=== PATIENT | male | born 1960 | race Caucasian/White ===

== ENCOUNTER 2018-06-14 09:36 | Emergency (ER) | payer MEDICAID, OTHER ==
[2018-06-14] MEDS ORDERED: Colchicine* 0.6 MG TAB PO ONE (09:53)
--- NOTE | 2018-06-14 10:08 | RAD ---
INDICATION: Left foot injury. TECHNIQUE: 3 views of the left foot were obtained. FINDINGS: The bones are in normal alignment. No fracture is seen. Joint spaces appear maintained. There are prominent vascular calcifications present. IMPRESSION: NO EVIDENCE FOR FRACTURE.
[2018-06-14] MEDS ORDERED: traMADol TAB* 50 MG PO ONE (10:29)
[2018-06-14] MEDS ORDERED: predniSONE TAB* 20 MG PO ONE (10:29)
[2018-06-14 10:47] LABS: ABS Basophils 0.1 10^3/ul (0-0.2); ABS Eosinophils 0.2 10^3/ul (0-0.6); ABS Lymphocytes 2.4 10^3/ul (1.0-4.8); ABS Monocytes 0.8 10^3/ul (0-0.8); ABS Neutrophils 6.8 10^3/ul (1.5-7.7); ABS Nucleated RBC 0 10^3/ul; Eosinophil % 1.8 % (0-6); Hematocrit 39 % (42-52); Lymphocyte % 23.6 % (25-47); Mean Corpuscular HGB Conc 33 g/dl (31-36); Mean Corpuscular Hemoglobin 29 pg (27-31); Mean Corpuscular Volume 87 fL (80-94); Mean Platelet Volume 8.6 um3 (7.4-10.4); Nucleated Red Blood Cells % 0.1; Platelet Count 324 10^3/ul (150-450); Red Cell Distribution Width 15 % (10.5-15); White Blood Count 10.3 10^3/ul (3.5-10.8)
[2018-06-14 11:12] LABS: EGFR Non-African American 45.4 (>60); Uric Acid 6.8 mg/dL (4.4-7.6)
[2018-06-14] MEDS ORDERED: Indomethacin CAP* 25 MG CAP PO ONE (11:55)
[2018-06-14 14:07] VITALS: BP 131/76
--- NOTE | 2018-06-14 16:26 | ED ---
Lower Extremity - HPI Summary HPI Summary: Patient is a 57-year-old male presenting to the ED with severe left foot pain. He states the pain gradually started proximally 2 days ago (36 hours) and gradually worsened. Denies any history of osteomyelitis, cellulitis or gout. He is a diabetic. He states he did not injure the foot or have any trauma to the area. He is noting some erythema to the base of the right great MCP as well as to go lateral side of the foot. The majority of the pain is to the toe and to the ball of the foot. He denies any excess alcohol use, however endorses eating a lot of protein over the weekend, however this is at his baseline. He denies any other symptoms at this time. Pain is currently a 10/10 , constant and throbbing and burning. Patient states this is worst of life. He has not taken any medications at home for relief. Blood sugars are well maintained with his medications. He is tearful on arrival. Vital signs are stable. - History of Current Complaint Chief Complaint: EDExtremityLower Stated Complaint: L FOOT PAIN Time Seen by Provider: 06/14/18 09:43 Hx Obtained From: Patient Mechanism Of Injury: Other - No known trauma Onset of Pain: Days Onset/Duration: Days Severity Initially: Severe Severity Currently: Severe Pain Intensity: 10 Pain Scale Used: 0-10 Numeric Timing: Constant Location: Is Discrete @ - Left foot, ball of foot, great toe and left lateral side Character Of Pain: Sharp, Aching, Burning Associated Signs And Symptoms: Positive: Swelling. Negative: Redness, Bruising , Fever, Weakness, Abdominal Pain, Knee Pain Aggravating Factor(s): Standing Alleviating Factor(s): Nothing Able to Bear Weight: No - Risk Factors Gout Risk Factors: Age Over 40, Male, Diabetes, Hypertension, Renal Disease DVT Risk Factors: Negative Septic Arthritis Risk Factor: Negative - Allergies/Home Medications Allergies/Adverse Reactions: Allergies Allergy/AdvReac Type Severity Reaction Status Date / Time Penicillins Allergy Swelling Verified 06/14/18 10:01 Home Medications: Home Medications Atorvastatin Calcium [Lipitor] 40 mg PO DAILY 06/14/18 [History Confirmed ] Lisinopril [Prinivil TAB 20 mg] 20 mg PO DAILY 06/14/18 [History Confirmed 06/14] Metformin HCl [Metformin HCl ER] 1,000 mg PO BID 06/14/18 [History Confirmed 11/27] glyBURIDE [Glyburide] 5 mg PO BID 06/14/18 [History Confirmed 06/14/18] PMH/Surg Hx/FS Hx/Imm Hx Previously Healthy: Yes Endocrine/Hematology History: Reports: Hx Diabetes - fs TID, oral meds, diet controlled Cardiovascular History: Denies: Hx Hypertension, Hx Pacemaker/ICD Respiratory History: Denies: Hx Asthma History: Reports: Hx Kidney Stones Musculoskeletal History: Reports: Hx Arthritis - in hands Sensory History: Reports: Hx Contacts or Glasses - glasses Denies: Hx Hearing Aid Opthamlomology History: Reports: Hx Contacts or Glasses - glasses Psychiatric History: Denies: Hx Panic Disorder - Surgical History Surgery Procedure, Year, and Place: SPLEEN, appendectomy, L4-5 disk has been removed, broken nose fixed; FACIAL SURGERY FOR MULTIPLE FRACTURES 06/2013 ( [facility]); FX LT CLAVICLE; PELVIS ORIF; LT KNEE DE GLOVING Hx Anesthesia Reactions: No - Immunization History Hx Pertussis Vaccination: No Immunizations Up to Date: Yes Infectious Disease History: No Infectious Disease History: Denies: Traveled Outside the [place] in Last 30 Days - Social History Occupation: Employed Full-time Lives: With Family Alcohol Use: None Hx Substance Use: No Substance Use Type: Reports: None Hx Tobacco Use: No Smoking Status (MU): Never Smoked Tobacco Review of Systems Constitutional: Negative Negative: Fever, Chills, Skin Diaphoresis Negative: Palpitations, Chest Pain Negative: Shortness Of Breath, Cough Genitourinary: Negative Positive: no symptoms reported, see HPI Positive: Arthralgia, Myalgia Positive: Other - erythema without warmth to the great toe and lateral side of the left foot Neurological: Negative All Other Systems Reviewed And Are Negative: Yes Physical Exam Triage Information Reviewed: Yes Vital Signs On Initial Exam: Initial Vitals Temp Pulse Resp BP Pulse Ox 98.2 F 95 16 111/74 99 06/14/18 09:41 06/14/18 09:41 06/14/18 09:41 06/14/18 09:41 06/14/18 09:41 Vital Signs Reviewed: Yes Appearance: Positive: Well-Appearing, Well-Nourished, Pain Distress Skin: Positive: Skin Color Reflects Adequate Perfusion, Other - erythema without warmth to the great toe and lateral side of the left foot Head/Face: Positive: Normal Head/Face Inspection Eyes: Positive: EOMI, ONEYDA, Conjunctiva Clear Neck: Positive: Supple, No Lymphadenopathy Respiratory/Lung Sounds: Positive: Clear to Auscultation, Breath Sounds Present Cardiovascular: Positive: RRR, Pulses are Symmetrical in both Upper and Lower Extremities. Negative: Leg Edema Left, Leg Edema Right Musculoskeletal: Positive: Pain @ - erythema without warmth to the great toe and lateral side of the left foot. Negative: Edema Left, Edema Right Neurological: Positive: Sensory/Motor Intact, Alert, Oriented to Person Place, Time, Speech Normal Psychiatric: Positive: Normal, Affect/Mood Appropriate AVPU Assessment: Alert Diagnostics - Vital Signs Vital Signs Temp Pulse Resp BP Pulse Ox 06/14/18 14:06 98.3 F 89 19 131/76 97 06/14/18 09:41 98.2 F 95 16 111/74 99 - Laboratory Lab Results: Lab Results 06/14/18 06/14/18 Range/Units 10:41 10:41 WBC 10.3 (3.5-10.8) 10^3/ul RBC 4.50 (4.00-5.40) 10^6/ul Hgb 13.0 L (14.0-18.0) g/dl Hct 39 L (42-52) % MCV 87 (80-94) fL MCH 29 (27-31) pg MCHC 33 (31-36) g/dl RDW 15 (10.5-15) % Plt Count 324 (150-450) 10^3/ul MPV 8.6 (7.4-10.4) um3 Neut % (Auto) 66.1 (38-83) % Lymph % (Auto) 23.6 L (25-47) % [place] % (Auto) 7.4 H (0-7) % Eos % (Auto) 1.8 (0-6) % Baso % (Auto) 1.1 (0-2) % Absolute Neuts (auto) 6.8 (1.5-7.7) 10^3/ul Absolute Lymphs (auto) 2.4 (1.0-4.8) 10^3/ul Absolute Monos (auto) 0.8 (0-0.8) 10^3/ul Absolute Eos (auto) 0.2 (0-0.6) 10^3/ul Absolute Basos (auto) 0.1 (0-0.2) 10^3/ul Absolute Nucleated RBC 0 10^3/ul Nucleated RBC % 0.1 ESR 35 H (0-20) mm/Hr Sodium 137 (135-145) mmol/L Potassium 5.6 H (3.5-5.0) mmol/L Chloride 102 (101-111) mmol/L Carbon Dioxide 26 (22-32) mmol/L Anion Gap 9 (2-11) mmol/L BUN 31 H (6-24) mg/dL Creatinine 1.57 H (0.67-1.17) mg/dL Est GFR ( Amer) 55.0 (>60) Est GFR (Non-Af Amer) 45.4 (>60) BUN/Creatinine Ratio 19.7 (8-20) Glucose 144 H (70-100) mg/dL Uric Acid 6.8 (4.4-7.6) mg/dL Calcium 9.7 (8.6-10.3) mg/dL Total Bilirubin 0.30 (0.2-1.0) mg/dL AST 26 (13-39) U/L ALT 23 (7-52) U/L Alkaline Phosphatase 50 (34-104) U/L C-React Prot High Sens 17.91 H (<2.00) mg/L Total Protein 7.3 (6.4-8.9) g/dL Albumin 4.3 (3.2-5.2) g/dL Globulin 3.0 (2-4) g/dL Albumin/Globulin Ratio 1.4 (1-3) Result Diagrams: 06/14/18 10:41 06/14/18 10:41 Lab Statement: Any lab studies that have been ordered have been reviewed, and results considered in the medical decision making process. Lower Extremity Course/Dx - Course Course Of Treatment: Patient is evaluated for left foot pain, severe, gradual onset starting approximately 36 hours ago. He states he's never had this pain before. Erythema to the base of the left MCP as well as the left lateral side of the foot. Endorses worsening pain to the ball of the foot. On arrival he is given colchicine, labs obtained which show no elevated white count, only slightly elevated CRP. X-ray obtained which is negative for any fractures. He denies any alcohol use and endorses eating a lot of protein, however this is at his baseline. He denies any trauma to the area. Patient is a diabetic, but on physical examination, there is good blood flow and I am not concerned for an arterial occlusion. No paleness noted to the foot. Pedal pulses and posterior tibial pulses intact. Slightly decreased cap refill, however this is noted bilaterally. No warmth is noted and a cellulitis is not likely. Tramadol is given as well as 60 mg prednisone. Discussed case with Dr. Ruiz who agrees to see patient as well and recommended trial of indomethacin. Indomethacin 50 mg also given and patient is feeling improved. He will be diagnosed with gout and is encouraged to follow up with his PCP. However he is given strict return precautions due to his history of diabetes. He will return for any worsening or changing symptoms. - Diagnoses Differential Diagnosis/HQI/PQRI: Positive: Other - Arterial occlusion, cellulitis, osteomyelitis, gout, trauma Provider Diagnoses: Gout attack Discharge - Sign-Out/Discharge Documenting (check all that apply): Patient Departure - Discharge Plan Condition: Stable Disposition: HOME Prescriptions: Indomethacin CAP* [Indocin CAP*] 50 mg PO TID PRN #15 cap MDD 3 PRN Reason: Pain predniSONE TAB* [Deltasone TAB*] 50 mg PO DAILY #5 tab traMADol TAB* [Ultram*] 50 mg PO Q8H PRN #12 tab MDD 3 PRN Reason: Pain Patient Education Materials: Indomethacin (By mouth), Low Purine Diet (ED), Gout (ED) Referrals: No Primary Care Phys,NOPCP [Primary Care Provider] - Additional Instructions: If he develop any worsening or changing symptoms, return to the ED or follow-up with your PCP Indomethacin 3 times daily 5 days, he will take 2 more doses of this medication today First dose should be around 5 PM and second dose should be around 10 PM Prednisone once daily in the morning 5 days, he will start this medication tomorrow - Billing Disposition and Condition Condition: STABLE Disposition: Home
[2018-06-15] MEDS ORDERED: Colchicine* 0.6 MG TAB PO SCH (09:00)
== END 2018-06-14 14:06 | disposition home or self-care (01) ==
LOC: ED 09:36
DX: M10.9 Gout, unspecified (principal); M79.672 Pain in left foot
CPT/HCPCS: 36415; 80053; 84550; 85025; 85652; 86141; 99283; A9270-GY; J7512

== ENCOUNTER 2019-06-10 22:11 | Inpatient (IN) | payer MEDICAID ==
[2019-06-11] MEDS ORDERED: guaiFENesin/CODIENE 100mg/10mg 5 ML UDC PO ONE ×2 (00:27→02:00)
[2019-06-11] MEDS ORDERED: Albuterol 2.5 MG/3 ML NEB.SOL* (0.083%) INH ONE (00:28)
[2019-06-11 01:02] LABS: ABS Basophils 0.2 10^3/ul (0-0.2); ABS Eosinophils 0.1 10^3/ul (0-0.6); ABS Lymphocytes 2.2 10^3/ul (1.0-4.8); ABS Monocytes 0.7 10^3/ul (0-0.8); ABS Neutrophils 11.5 10^3/ul (1.5-7.7); Eosinophil % 0.4 %; Hematocrit 38 % (42-52); Hemoglobin 12.3 g/dL (14.0-18.0); Lymphocyte % 14.9 %; Mean Corpuscular HGB Conc 33 g/dL (31-36); Mean Corpuscular Hemoglobin 27 pg (27-31); Mean Corpuscular Volume 83 fL (80-94); Mean Platelet Volume 9.5 fL (7.4-10.4); Nucleated Red Blood Cells % 0.1; Platelet Count 306 10^3/uL (150-450); Red Blood Count 4.51 10^6 /uL (4.18-5.48); Red Cell Distribution Width 14 % (10-15); White Blood Count 14.6 10^3/uL (3.5-10.8)
[2019-06-11 01:22] LABS: ALT 23 U/L (7-52); AST 30 U/L (13-39); Albumin 3.8 g/dL (3.2-5.2); Albumin/Globulin Ratio 1.4 (1-3); Alkaline Phosphatase 60 U/L (34-104); Anion Gap 11 mmol/L (2-11); BUN/Creatinine Ratio 20.7 (8-20); Blood Urea Nitrogen 24 mg/dL (6-24); CO2 Carbon Dioxide 18 mmol/L (22-32); Calcium 8.9 mg/dL (8.6-10.3); Chloride 104 mmol/L (101-111); EGFR African American 77.7 (>60); EGFR Non-African American 64.2 (>60); Globulin 2.8 g/dL (2-4); Glucose 142 mg/dL (70-100); Potassium 3.4 mmol/L (3.5-5.0); Sodium 133 mmol/L (135-145); Total Protein 6.6 g/dL (6.4-8.9)
[2019-06-11] MEDS ORDERED: methylPREDNISolone 125 MG* 2 ML VIAL IV ONE (01:23)
[2019-06-11] MEDS ORDERED: Iodixanol 320 (CONTRAST) 100 ML SDV IV ONE (01:30)
[2019-06-11 01:31] LABS: Troponin I 1.51 ng/mL (<0.04)
[2019-06-11] MEDS ORDERED: Furosemide IV* 10 MG/ML VIAL (40 MG) IV SLOW PU ONE (01:31)
[2019-06-11] MEDS ORDERED: Aspirin 81 mg CHEW TAB* 81 MG TAB.CHEW PO ONE (01:43)
--- NOTE | 2019-06-11 01:47 | ED ---
Shortness of Breath - HPI Summary HPI Summary: 58 year male w/ PMH of depression, dm and high cholesterol presents with cough for the past day. He admits to dizziness and shortness of breath. He also notes some chest tightness in the center of his chest. He states he cannot stop coughing. He denies abdominal pain. No nausea vomiting. He is nonsmoker. Does not vape. He denies any history asthma or COPD. Never had this before. No fevers. Does admit to increased swelling in his legs. No change in weight. - History of Current Complaint Chief Complaint: EDUpperRespComplaint Time Seen by Provider: 06/11/19 00:16 - Allergy/Home Medications Allergies/Adverse Reactions: Allergies Allergy/AdvReac Type Severity Reaction Status Date / Time Penicillins Allergy Swelling Verified 06/10/19 22:29 PMH/Surg Hx/FS Hx/Imm Hx Endocrine/Hematology History: Reports: Hx Diabetes - fs TID, oral meds, diet controlled Denies: Hx Anticoagulant Therapy Cardiovascular History: Denies: Hx Hypertension, Hx Pacemaker/ICD Respiratory History: Denies: Hx Asthma, Hx Chronic Obstructive Pulmonary Disease (COPD) History: Reports: Hx Kidney Stones Musculoskeletal History: Reports: Hx Arthritis - in hands Sensory History: Reports: Hx Contacts or Glasses - glasses Denies: Hx Hearing Aid Opthamlomology History: Reports: Hx Contacts or Glasses - glasses Psychiatric History: Denies: Hx Panic Disorder - Surgical History Surgery Procedure, Year, and Place: SPLEEN, appendectomy, L4-5 disk has been removed, broken nose fixed; FACIAL SURGERY FOR MULTIPLE FRACTURES 06/2013 ( [facility]); FX LT CLAV[place]; PELVIS ORIF; LT KNEE DE GLOVING Hx Anesthesia Reactions: No Infectious Disease History: Yes Infectious Disease History: Denies: Traveled Outside the [place] in Last 30 Days - Family History Known Family History: Positive: Hypertension - Social History Alcohol Use: None Hx Substance Use: No Substance Use Type: Reports: None Hx Tobacco Use: No Smoking Status (MU): Never Smoked Tobacco Review of Systems Negative: Fever Positive: Chest Pain Positive: Shortness Of Breath, Cough Negative: Abdominal Pain All Other Systems Reviewed And Are Negative: Yes Physical Exam Triage Information Reviewed: Yes Vital Signs On Initial Exam: Initial Vitals Temp Pulse Resp BP Pulse Ox 99.5 F 103 20 118/83 94 06/10/19 22:26 06/10/19 22:26 06/10/19 22:26 06/10/19 22:26 06/10/19 22:26 Vital Signs Reviewed: Yes Appearance: Positive: Well-Appearing Skin: Positive: Warm, Dry Head/Face: Positive: Normal Head/Face Inspection Eyes: Positive: Normal, EOMI, ONEYDA, Conjunctiva Clear ENT: Positive: Normal ENT inspection, Pharynx normal, TMs normal Respiratory/Lung Sounds: Positive: Decreased Breath Sounds, Rales Cardiovascular: Positive: Normal, RRR Abdomen Description: Positive: Nontender, Soft Bowel Sounds: Positive: Present Musculoskeletal: Positive: Normal Neurological: Positive: Normal Psychiatric: Positive: Normal Diagnostics - Vital Signs Vital Signs Temp Pulse Resp BP Pulse Ox 06/11/19 01:06 100 16 95 06/10/19 22:26 99.5 F 103 20 118/83 94 - Laboratory Lab Results: Lab Results 06/11/19 06/11/19 06/11/19 Range/Units 00:50 00:51 00:51 WBC 14.6 H (3.5-10.8) 10^3/uL RBC 4.51 (4.18-5.48) 10^6 /uL Hgb 12.3 L (14.0-18.0) g/dL Hct 38 L (42-52) % MCV 83 (80-94) fL MCH 27 (27-31) pg MCHC 33 (31-36) g/dL RDW 14 (10-15) % Plt Count 306 (150-450) 10^3/uL MPV 9.5 (7.4-10.4) fL Neut % (Auto) 78.9 % Lymph % (Auto) 14.9 % [place] % (Auto) 4.7 % Eos % (Auto) 0.4 % Baso % (Auto) 1.1 % Absolute Neuts (auto) 11.5 H (1.5-7.7) 10^3/ul Absolute Lymphs (auto) 2.2 (1.0-4.8) 10^3/ul Absolute Monos (auto) 0.7 (0-0.8) 10^3/ul Absolute Eos (auto) 0.1 (0-0.6) 10^3/ul Absolute Basos (auto) 0.2 (0-0.2) 10^3/ul Absolute Nucleated RBC 0.0 10^3/ul Nucleated RBC % 0.1 D-Dimer, Quantitative 301 H (Less Than 230) ng/mL Sodium 133 L (135-145) mmol/L Potassium 3.4 L (3.5-5.0) mmol/L Chloride 104 (101-111) mmol/L Carbon Dioxide 18 L (22-32) mmol/L Anion Gap 11 (2-11) mmol/L BUN 24 (6-24) mg/dL Creatinine 1.16 (0.67-1.17) mg/dL Est GFR ( Amer) 77.7 (>60) Est GFR (Non-Af Amer) 64.2 (>60) BUN/Creatinine Ratio 20.7 H (8-20) Glucose 142 H (70-100) mg/dL Lactic Acid (0.5-2.0) mmol/L Calcium 8.9 (8.6-10.3) mg/dL Total Bilirubin 0.70 (0.2-1.0) mg/dL AST 30 (13-39) U/L ALT 23 (7-52) U/L Alkaline Phosphatase 60 (34-104) U/L Troponin I 1.51 H* (<0.04) ng/mL B-Natriuretic Peptide (<=100) pg/mL Total Protein 6.6 (6.4-8.9) g/dL Albumin 3.8 (3.2-5.2) g/dL Globulin 2.8 (2-4) g/dL Albumin/Globulin Ratio 1.4 (1-3) 06/11/19 06/11/19 Range/Units 00:51 00:51 WBC (3.5-10.8) 10^3/uL RBC (4.18-5.48) 10^6 /uL Hgb (14.0-18.0) g/dL Hct (42-52) % MCV (80-94) fL MCH (27-31) pg MCHC (31-36) g/dL RDW (10-15) % Plt Count (150-450) 10^3/uL MPV (7.4-10.4) fL Neut % (Auto) % Lymph % (Auto) % [place] % (Auto) % Eos % (Auto) % Baso % (Auto) % Absolute Neuts (auto) (1.5-7.7) 10^3/ul Absolute Lymphs (auto) (1.0-4.8) 10^3/ul Absolute Monos (auto) (0-0.8) 10^3/ul Absolute Eos (auto) (0-0.6) 10^3/ul Absolute Basos (auto) (0-0.2) 10^3/ul Absolute Nucleated RBC 10^3/ul Nucleated RBC % D-Dimer, Quantitative (Less Than 230) ng/mL Sodium (135-145) mmol/L Potassium (3.5-5.0) mmol/L Chloride (101-111) mmol/L Carbon Dioxide (22-32) mmol/L Anion Gap (2-11) mmol/L BUN (6-24) mg/dL Creatinine (0.67-1.17) mg/dL Est GFR ( Amer) (>60) Est GFR (Non-Af Amer) (>60) BUN/Creatinine Ratio (8-20) Glucose (70-100) mg/dL Lactic Acid 1.0 (0.5-2.0) mmol/L Calcium (8.6-10.3) mg/dL Total Bilirubin (0.2-1.0) mg/dL AST (13-39) U/L ALT (7-52) U/L Alkaline Phosphatase (34-104) U/L Troponin I (<0.04) ng/mL B-Natriuretic Peptide 821 H (<=100) pg/mL Total Protein (6.4-8.9) g/dL Albumin (3.2-5.2) g/dL Globulin (2-4) g/dL Albumin/Globulin Ratio (1-3) Result Diagrams: 06/11/19 00:51 06/11/19 00:51 Lab Statement: Any lab studies that have been ordered have been reviewed, and results considered in the medical decision making process. - Radiology chest Radiology Interpretation Completed By: Radiologist Summary of Radiographic Findings: Abnormal perihilar infiltrate. This could represent an atypical pneumonia. Differential consists of ARDS, pulmonary hemorrhage, and noncardiogenic pulmonary edema to list partial differential - EKG No standard instances Cardiac Rate: Tachycardia EKG Rhythm: Sinus Tachycardia Summary of EKG Findings: sinus tachycardia Re-Evaluation - Re-Evaluation First Eval Change: Unchanged Comment: breathing treatment helped but continues to help Second Eval Re-Evaluation Time: 01:50 Comment: discussed results, feeling a little bit better Third Eval Re-Evaluation Time: 02:57 Change: Improved Comment: stopped coughing Course/Dx - Course Course Of Treatment: 58 year male w/ PMH of depression, dm and high cholesterol presents with cough for the past day. He admits to dizziness and shortness of breath. He also notes some chest tightness in the center of his chest. He states he cannot stop coughing. He denies abdominal pain. No nausea vomiting. He is nonsmoker. Does not vape. He denies any history asthma or COPD. Never had this before. No fevers. Does admit to increased swelling in his legs. No change in weight. On exam decreased breath sounds with rales heard. Patient continues to cough while in the room. gave breathing treatment with some improvement. EKG shows a sinus tachycardia. wbc 14. Chest x-ray shows potential infiltrate and is read as potential atypical pneumonia. Troponin is 1.5. BNP is 800. Gave dosed Lasix. Discussed with Dr. Lindsey says to started on heparin drip. gave azithromycin due to potential atypical pneumonia. CTA was ordered patient is not able to sit still due to the cough at the moment. Discussed with Dr. taylor who agrees to admit. - Diagnoses Differential Diagnosis/HQI/PQRI: Positive: Pneumonia, Pulmonary Embolism, Unstable Angina Provider Diagnoses: Pneumonia, NSTEMI (non-ST elevated myocardial infarction), Shortness of breath Discharge ED - Sign-Out/Discharge Documenting (check all that apply): Patient Departure - Discharge Plan Condition: Fair Disposition: ADMITTED TO [facility] - Billing Disposition and Condition Condition: FAIR Disposition: Admitted to [facility] - Attestation Statements Provider Attestation: I have seen the patient with the BONILLA and agree with the plan and documentation below except as noted: External male presents with difficulty breathing and have diffuse bilateral object concerning for atypical pneumonia. CT chest obtained. Admit Damon Malagon MD
[2019-06-11] MEDS ORDERED: LORazepam INJ* 2 MG/ML 1 ML VIAL IV PUSH ONE (01:56)
[2019-06-11] MEDS ORDERED: Lorazepam PYXIS KEY PRN (01:56)
[2019-06-11] MEDS ORDERED: Lorazepam PYXIS KEY ONE (01:59)
[2019-06-11] MEDS ORDERED: Albuterol/Ipratropium NEB.SOL* Albuterol 2.5 MG/Ipratropium 0.5 MG 3 ML INH ONE (02:00)
[2019-06-11] MEDS ORDERED: Azithromycin 500 mg/250 ml NS 500 MG/250 ML BAG IVPB ONE (02:20)
[2019-06-11] MEDS ORDERED: Dextrose 50% VIAL 50 ml IV PUSH PRN ×2 (02:39→03:40)
[2019-06-11] MEDS: Heparin DRIP 25,000 UNITS(*) 25,000 UNITS/500 ML BAG IV SCH (03:14)
[2019-06-11] MEDS: Heparin VIAL(*) 5000 UNITS/ML VIAL (FIVE THOUSAND) IV SCH ×2 (03:17→11:10)
[2019-06-11] MEDS ORDERED: Piperacillin/Tazobac ADVAN(*) 3.375 GM in NS 0.9% 100 ML* 100 ML IVPB ONE (03:37)
[2019-06-11] MEDS ORDERED: traMADol TAB* 50 MG PO PRN (03:38)
[2019-06-11] MEDS ORDERED: Al Hydrox/Mg Hydrox/Simet LIQ* 30 ML UDC PO PRN (03:41)
[2019-06-11] MEDS ORDERED: Acetaminophen TAB* 325 MG PO PRN (03:41)
[2019-06-11 03:42] LABS: Troponin I 1.52 ng/mL (<0.04)
--- NOTE | 2019-06-11 03:44 | ED ---
Progress - Progress Note Progress Note: This pt is a signout from RHODA Deal to Dr. Malagon at 0300 shift change pending disposition. Pt will be admitted. Re-Evaluation - Re-Evaluation First Eval Change: Unchanged Comment: breathing treatment helped but continues to help Second Eval Re-Evaluation Time: 01:50 Comment: discussed results, feeling a little bit better Third Eval Re-Evaluation Time: 02:57 Change: Improved Comment: stopped coughing Course/Dx - Course Course Of Treatment: This pt is a signout from RHODA Deal to Dr. Malagon at 0300 shift change pending disposition. Pt will be admitted. - Diagnoses Provider Diagnoses: Pneumonia, NSTEMI (non-ST elevated myocardial infarction), Shortness of breath Discharge ED - Sign-Out/Discharge Documenting (check all that apply): Receiving Sign-Out Receiving patient FROM: Amelie Deal - This pt is a signout from RHODA Deal to Dr. Malagon at 0300 shift change pending disposition Patient Received Moderate/Deep Sedation with Procedure: No - Discharge Plan Condition: Fair Disposition: ADMITTED TO [facility] - Billing Disposition and Condition Condition: FAIR Disposition: Admitted to [facility] - Attestation Statements Document Initiated by Scribe: Yes Documenting Scribe: Watson Farrell Provider For Whom Juan C is Documenting (Include Credential): Dr. Damon Malagon MD Scribe Attestation: Watson Sloan, scribed for Dr. Damon Malagon MD on 06/11/19 at 0801. Scribe Documentation Reviewed: Yes Provider Attestation: The documentation as recorded by the Watson carter accurately reflects the service I personally performed and the decisions made by me, Dr. Damon Malagon MD Status of Scribe Document: Viewed
[2019-06-11] MEDS ORDERED: Zosyn per Pharmacy* NOTE FOLLOW UP SCH (04:00)
[2019-06-11 04:49] LABS: Activated Partial Thrombo Time 34.3 seconds (26.0-38.0)
[2019-06-11 04:57] LABS: C Reactive Protein 52.75 mg/L (<8.01)
[2019-06-11] MEDS ORDERED: Insulin LISPRO* 1 UNITS UNIT SUBCUT SCH (06:00)
[2019-06-11] MEDS ORDERED: Aspirin TAB* 325 MG PO SCH (07:00)
[2019-06-11 07:07] LABS: Influenza A Molecular NEGATIVE (Negative); Influenza B Molecular NEGATIVE (Negative)
[2019-06-11] MEDS ORDERED: ZOSYN 3.375 GM Q8H per EXTENDED INFUSION IVPB SCH ×2 (08:00)
[2019-06-11] MEDS: Insulin LISPRO* 1 UNITS UNIT SUBCUT SCH ×4 (08:03→20:48)
--- NOTE | 2019-06-11 08:23 | PN ---
Subjective Date of Service: 06/11/19 Objective Active Medications: Acetaminophen (Tylenol Tab*) 650 mg PO Q4H PRN PRN Reason: PAIN-MILD/TEMP >/= 100.4 Al Hydrox/Mg Hydrox/Simethicone (Maalox Plus*) 30 ml PO Q6H PRN PRN Reason: INDIGESTION Aspirin (Aspirin Tab*) 325 mg PO DAILY [facility] Last Admin: 06/11/19 08:18 Dose: 325 mg Dextrose (Dextrose 50% Vial 50 Ml*) 25 ml IV PUSH .FOR FS < 60 - SS PRN PRN Reason: FS < 60 Docusate Sodium (Colace Cap*) 100 mg PO BID [facility] Heparin Sodium (Porcine) (Heparin Vial(*)) 0 units IV .PER PROTOCOL [facility] Last Admin: 06/11/19 03:17 Dose: 4,000 units Heparin Sodium/Dextrose (Heparin Drip 25,000 Units(*)) 25,000 units in 500 mls @ 0 mls/hr IV PER RATE [facility]; Protocol Last Admin: 06/11/19 03:14 Dose: 19 mls/hr Piperacillin Sod/Tazobactam (Sod 3.375 gm/ Sodium Chloride) 100 mls @ 25 mls/ hr IVPB Q8H [facility] Insulin Human Lispro (Humalog*) 0 units SUBCUT ACHS [facility]; Protocol Last Admin: 06/11/19 08:03 Dose: Not Given Lorazepam (Ativan Tab(*)) 0.5 mg PO Q4H PRN PRN Reason: ANXIETY Miscellaneous (Ativan Pyxis Renee) 1 ea N/A .ATIVAN IV RENEE PRN PRN Reason: PYXIS RENEE Morphine Sulfate (Morphine Inj (Syringe))*) 2 mg IV Q4H PRN PRN Reason: Pain -severe Pharmacy Consult (Zosyn Per Pharmacy*) 1 note FOLLOW UP .ZOSYN PER PHARMACY [facility] Tramadol HCl (Ultram*) 50 mg PO Q8H PRN PRN Reason: Pain-severe Vital Signs - 8 hr 06/11/19 06/11/19 06/11/19 00:40 00:41 00:48 Temperature Pulse Rate 101 102 Respiratory Rate Blood Pressure 110/71 109/83 121/82 (mmHg) O2 Sat by Pulse 97 97 Oximetry 06/11/19 06/11/19 06/11/19 01:00 01:06 01:17 Temperature Pulse Rate 101 100 Respiratory 16 Rate Blood Pressure 123/75 (mmHg) O2 Sat by Pulse 97 95 Oximetry 06/11/19 06/11/19 06/11/19 01:47 02:00 02:03 Temperature Pulse Rate 105 105 Respiratory 22 Rate Blood Pressure 129/90 (mmHg) O2 Sat by Pulse 95 91 Oximetry 06/11/19 06/11/19 06/11/19 02:17 02:38 02:47 Temperature Pulse Rate Respiratory Rate Blood Pressure 124/84 132/86 137/85 (mmHg) O2 Sat by Pulse Oximetry 06/11/19 06/11/19 06/11/19 03:00 03:43 03:47 Temperature Pulse Rate 106 106 Respiratory 25 34 25 Rate Blood Pressure 125/96 130/90 (mmHg) O2 Sat by Pulse 93 93 Oximetry 06/11/19 06/11/19 06/11/19 04:00 05:09 05:10 Temperature Pulse Rate 106 95 90 Respiratory 21 13 Rate Blood Pressure 121/83 (mmHg) O2 Sat by Pulse 88 99 99 Oximetry 06/11/19 06/11/19 06/11/19 05:39 06:00 06:10 Temperature Pulse Rate Respiratory 14 15 13 Rate Blood Pressure 125/87 117/83 (mmHg) O2 Sat by Pulse Oximetry 06/11/19 06/11/19 06/11/19 06:24 06:27 06:30 Temperature 97.9 F Pulse Rate 85 94 96 Respiratory 12 44 32 Rate Blood Pressure 117/86 117/86 119/83 (mmHg) O2 Sat by Pulse 100 99 96 Oximetry 06/11/19 06/11/19 06/11/19 06:33 06:45 07:00 Temperature 97.7 F Pulse Rate 96 97 97 Respiratory 17 37 35 Rate Blood Pressure 117/83 123/86 122/83 (mmHg) O2 Sat by Pulse 97 93 89 Oximetry 06/11/19 06/11/19 06/11/19 07:15 07:19 07:30 Temperature 97.3 F Pulse Rate 93 96 Respiratory 16 35 Rate Blood Pressure 116/82 105/71 (mmHg) O2 Sat by Pulse 98 91 Oximetry 06/11/19 07:46 Temperature Pulse Rate Respiratory 14 Rate Blood Pressure (mmHg) O2 Sat by Pulse Oximetry Oxygen Devices in Use Now: OxyMask Result Diagrams: 06/11/19 00:51 06/11/19 00:51 Additional Lab and Data: Lab Results 06/11/19 06/11/19 06/11/19 Range/Units 00:50 00:51 00:51 WBC 14.6 H (3.5-10.8) 10^3/uL RBC 4.51 (4.18-5.48) 10^6 /uL Hgb 12.3 L (14.0-18.0) g/dL Hct 38 L (42-52) % MCV 83 (80-94) fL MCH 27 (27-31) pg MCHC 33 (31-36) g/dL RDW 14 (10-15) % Plt Count 306 (150-450) 10^3/uL MPV 9.5 (7.4-10.4) fL Neut % (Auto) 78.9 % Lymph % (Auto) 14.9 % Cheyenne % (Auto) 4.7 % Eos % (Auto) 0.4 % Baso % (Auto) 1.1 % Absolute Neuts (auto) 11.5 H (1.5-7.7) 10^3/ul Absolute Lymphs (auto) 2.2 (1.0-4.8) 10^3/ul Absolute Monos (auto) 0.7 (0-0.8) 10^3/ul Absolute Eos (auto) 0.1 (0-0.6) 10^3/ul Absolute Basos (auto) 0.2 (0-0.2) 10^3/ul Absolute Nucleated RBC 0.0 10^3/ul Nucleated RBC % 0.1 D-Dimer, Quantitative 301 H (Less Than 230) ng/mL Sodium 133 L (135-145) mmol/L Potassium 3.4 L (3.5-5.0) mmol/L Chloride 104 (101-111) mmol/L Carbon Dioxide 18 L (22-32) mmol/L Anion Gap 11 (2-11) mmol/L BUN 24 (6-24) mg/dL Creatinine 1.16 (0.67-1.17) mg/dL Est GFR ( Amer) 77.7 (>60) Est GFR (Non-Af Amer) 64.2 (>60) BUN/Creatinine Ratio 20.7 H (8-20) Glucose 142 H (70-100) mg/dL Lactic Acid (0.5-2.0) mmol/L Calcium 8.9 (8.6-10.3) mg/dL Total Bilirubin 0.70 (0.2-1.0) mg/dL AST 30 (13-39) U/L ALT 23 (7-52) U/L Alkaline Phosphatase 60 (34-104) U/L Troponin I 1.51 H* (<0.04) ng/mL B-Natriuretic Peptide (<=100) pg/mL Total Protein 6.6 (6.4-8.9) g/dL Albumin 3.8 (3.2-5.2) g/dL Globulin 2.8 (2-4) g/dL Albumin/Globulin Ratio 1.4 (1-3) 06/11/19 06/11/19 Range/Units 00:51 00:51 WBC (3.5-10.8) 10^3/uL RBC (4.18-5.48) 10^6 /uL Hgb (14.0-18.0) g/dL Hct (42-52) % MCV (80-94) fL MCH (27-31) pg MCHC (31-36) g/dL RDW (10-15) % Plt Count (150-450) 10^3/uL MPV (7.4-10.4) fL Neut % (Auto) % Lymph % (Auto) % Cheyenne % (Auto) % Eos % (Auto) % Baso % (Auto) % Absolute Neuts (auto) (1.5-7.7) 10^3/ul Absolute Lymphs (auto) (1.0-4.8) 10^3/ul Absolute Monos (auto) (0-0.8) 10^3/ul Absolute Eos (auto) (0-0.6) 10^3/ul Absolute Basos (auto) (0-0.2) 10^3/ul Absolute Nucleated RBC 10^3/ul Nucleated RBC % D-Dimer, Quantitative (Less Than 230) ng/mL Sodium (135-145) mmol/L Potassium (3.5-5.0) mmol/L Chloride (101-111) mmol/L Carbon Dioxide (22-32) mmol/L Anion Gap (2-11) mmol/L BUN (6-24) mg/dL Creatinine (0.67-1.17) mg/dL Est GFR ( Amer) (>60) Est GFR (Non-Af Amer) (>60) BUN/Creatinine Ratio (8-20) Glucose (70-100) mg/dL Lactic Acid 1.0 (0.5-2.0) mmol/L Calcium (8.6-10.3) mg/dL Total Bilirubin (0.2-1.0) mg/dL AST (13-39) U/L ALT (7-52) U/L Alkaline Phosphatase (34-104) U/L Troponin I (<0.04) ng/mL B-Natriuretic Peptide 821 H (<=100) pg/mL Total Protein (6.4-8.9) g/dL Albumin (3.2-5.2) g/dL Globulin (2-4) g/dL Albumin/Globulin Ratio (1-3) Microbiology and Other Data: Microbiology 06/11/19 06:26 Nasal Screen MRSA (PCR) - Final Nasal Mrsa Not Detected Assess/Plan/Problems-Billing Assessment:
[2019-06-11] MEDS: Docusate CAP* 100 MG PO SCH ×2 (08:57→20:38)
[2019-06-11] MEDS ORDERED: Influenza VAC *QUAD* 2019-20* 0.5 ML SYRINGE IM ONE (09:00)
[2019-06-11] MEDS ORDERED: Cefepime ADVAN(*) 1 GM in NS 0.9% 50 ML* 50 ML IVPB SCH (09:00)
--- NOTE | 2019-06-11 09:37 | ECHO ---
*[facility]* [place] [address] Fax #: [phone] Transthoracic Echocardiogram Patient: Naga Vega : 1960 Study Date: 06/11/2019 Age: 58 Gender: M HR: 91 bpm Height: 70 in /177.8 cm BSA: 1.98 m^2 Weight: 176.6 lb /80.3 kg BMI: 25.4 kg/m^2 *Dragline Mechanic: Geni Swift [facility] *Referring Physician: * Natalie Castle *Reading Physician: * Rob Craft MD Indications: SOB. History: Risk factors: Diabetes mellitus. Dyslipidemia. Conclusions Summary: - Left ventricle: Systolic function is moderately to severely reduced. The estimated ejection fraction is 25-30%. Moderate to severe diffuse hypokinesiswith regional wall motion abnormalities. Inferior Akinesis. - Right ventricle: Systolic function is normal. - Mitral valve: There is moderate to severe regurgitation. - Aortic valve: There is no evidence of stenosis. There is trace regurgitation. - Tricuspid valve: There is trace regurgitation. - Pericardium, extracardiac: There is no significant pericardial effusion. - Pulmonary arteries: Systolic pressure is within the normal range. - Study data: No prior study is available for comparison. Study data: Transthoracic echocardiogram. Procedure: Transthoracic echocardiography was performed. Image quality was good. Complete 2D, spectral Doppler, and color flow Doppler. Location: ICU Patient status: Inpatient. Patient room number: 8. No prior study is available for comparison. Rhythm: Normal sinus rhythm with PVC's. Findings Left ventricle: The cavity size is normal. Wall thickness is mildly increased. Systolic function is moderately to severely reduced. The estimated ejection fraction is 25-30%. Moderate to severe diffuse hypokinesiswith regional wall motion abnormalities. There is no consistent Doppler evidence of clinically significant diastolic dysfunction. Right ventricle: The cavity size is normal. Systolic function is normal. Left atrium: The atrium is severely dilated. Right atrium: The atrium is normal in size. Mitral valve: The Mitral valve annulus appears mildly calcified. There is no evidence of stenosis. There is moderate to severe regurgitation. Aortic valve: The valve is probably trileaflet. The leaflets are mildly thickened. Moderate focal involving the noncoronary cusp. There is no evidence of stenosis. There is trace regurgitation. Tricuspid valve: The leaflets are normal thickness. There is no evidence of stenosis. There is trace regurgitation. Pulmonic valve: The leaflets are normal thickness. There is no evidence of stenosis. There is trace to mild regurgitation. Aorta: The aortic root appears normal. The aortic arch appears normal. Pericardium: There is no significant pericardial effusion. Pulmonary arteries: The main pulmonary artery is normal-sized. Systolic pressure is within the normal range. Systemic veins: Inferior vena cava: The vessel is normal in size. There is (>= 50%) respiratory change in the IVC dimension. Measurements Left ventricle Value Ref Aortic valve continued Value Ref PETE, LAX 4.9 cm 4.2 - 5.8 VTI, S 18.6 cm ----- ESD, LAX (H) 4.9 cm 2.5 - 4.0 Mean grad, S 3.0 mm Hg ----- FS, LAX (L) 0 % 25 - 43 Peak grad, S 5.0 mm Hg ----- PW, ED, LAX 0.9 cm 0.6 - 1.0 EF (L) 1 % 52 - 72 Mitral valve Value Ref E', lat serenity, TDI (L) 9.4 cm/sec >=10.0 Peak E 0.9 m/sec - ---- E/e', lat serenity, 10 Peak A 0.63 m/sec ---- - TDI Decel time 79 ms ----- E', med serenity, TDI (L) 6.7 cm/sec >=7.0 Peak grad, D 3.2 mm Hg - ---- E/e', med serenity, 13 Peak E/A ratio 1.4 ---- - TDI ERO, PISA 0.21 cm^2 ----- E', avg, TDI 8.1 cm/sec MR vol, PISA 26 ml ---- - E/e', avg, TDI 11 <=14 Pulmonic valve Value Ref LVOT Value Ref Peak v, S 0.41 m/sec ----- Peak mundo, S 0.55 m/sec Peak grad, S 1.0 mm Hg ----- Mean grad, S 1 mm Hg Tricuspid valve Value Ref Ventricular septum Value Ref TR peak v 2.1 m/sec <=2.8 IVS, ED (H) 1.2 cm 0.6 - 1.0 Peak RV-RA grad, S 18 mm Hg ----- Right ventricle Value Ref Aortic root Value Ref PETE, LAX 2.6 cm Root diam 3.1 cm <4.1 PETE minor ax, A4C 3.2 cm 1.9 - 3.5 mid Ascending aorta Value Ref Pressure, S 26 mm Hg AAo AP diam, S 3.3 cm ----- Left atrium Value Ref Aortic arch Value Ref AP dim, ES 3.80 cm 3.00 - Arch diam 2.9 cm ----- 4.00 ML dim, A4C 4.9 cm Decending aorta Value Ref SI dim, A4C 5.0 cm Diane peak mundo 0.35 m/sec ----- Vol/bsa, ES, A/L (H) 62 ml/m^2 16 - 34 Pulmonary artery Value Ref Right atrium Value Ref Pressure, S 25.0 mm Hg ----- SI dim, ES 3.5 cm 3.4 - 5.3 ML dim, ES, A4C 3.5 cm 2.6 - 4.4 Inferior vena cava Value Ref Estimated RAP 8 mm Hg Diam 1.4 cm ----- Aortic valve Value Ref Serenity diam, ED 2.2 cm Peak v, S 1.16 m/sec Legend: (L) and (H) svetlana values outside specified reference range. Prepared and electronically signed by Rob Craft MD 06/11/2019 09:36
[2019-06-11] MEDS: metroNIDAZOLE IV 500 MG/100ML* 500 MG/100 ML BAG IVPB SCH ×2 (09:45→17:22)
[2019-06-11] MEDS: Cefepime 1 GM in Dextrose(*) 1 GM/50 ML BAG IV SCH ×2 (09:45→20:48)
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
[2019-06-11 09:54] LABS: Hematocrit 37 % (42-52); Hemoglobin 12.2 g/dL (14.0-18.0); Mean Corpuscular HGB Conc 33 g/dL (31-36); Mean Corpuscular Hemoglobin 28 pg (27-31); Mean Corpuscular Volume 84 fL (80-94); Mean Platelet Volume 9.4 fL (7.4-10.4); Platelet Count 290 10^3/uL (150-450); Red Blood Count 4.39 10^6 /uL (4.18-5.48); Red Cell Distribution Width 15 % (10-15); White Blood Count 12.7 10^3/uL (3.5-10.8)
[2019-06-11 10:26] LABS: Troponin I 1.58 ng/mL (<0.04)
[2019-06-11 10:37] LABS: ABS Basophils 0.1 10^3/ul (0-0.2); ABS Eosinophils 0.2 10^3/ul (0-0.6); ABS Lymphocytes 2.5 10^3/ul (1.0-4.8); ABS Monocytes 0.8 10^3/ul (0-0.8); ABS Neutrophils 9.1 10^3/ul (1.5-7.7); Eosinophil % 1.3 %; Lymphocyte % 20.1 %; Nucleated Red Blood Cells % 0.1
[2019-06-11] MEDS: LORazepam TAB(*) 0.5 MG PO PRN ×2 (14:08→20:48)
--- NOTE | 2019-06-11 16:46 | PN ---
Hospitalist Progress Note Date of Service: 06/11/19 HOSPITALIST ADDENDUM Called reviewed and d/w Dana Duran RN. He feels a little better today. Denies CP, palpitations, but still has dyspnea with minimal exertion. Selected Entries 06/11/19 06/11/19 15:00 16:00 Temperature 98.3 F Heart Rate 93 Respiratory 18 Rate Blood Pressure 106/74 (mmHg) O2 Sat by Pulse 100 Oximetry Gen: pleasant gentleman lying in bed in NAD CVS: normal S1 and S2, RRR Chest: BS+ bilaterally with bilateral crackles. Abd: soft, NT, BS+ Neuro: AAOx3, REYES A/P: NSTEMI / new systolic CHF - Echo shows EF 25-30% with inferior wall akinesis. - Continue Aspirin, Heparin drip. - Cardiology consult. - Suspect superimposed pneumonia - continue Cefepime and Azithromycin. - Continue to monitor in ICU.
[2019-06-11 17:50] LABS: Urine Benzodiazepine Screen None Detected (None Detect); Urine Opiates Screen Presumptive Positive (None Detect)
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
[2019-06-11 21:03] LABS: Troponin I 1.07 ng/mL (<0.04)
[2019-06-11 23:31] LABS: Troponin I 1.15 ng/mL (<0.04)
[2019-06-12] MEDS: Heparin DRIP 25,000 UNITS(*) 25,000 UNITS/500 ML BAG IV SCH (01:50)
[2019-06-12] MEDS: Azithromycin 500 mg/250 ml NS 500 MG/250 ML BAG IVPB SCH (01:50)
[2019-06-12] MEDS: metroNIDAZOLE IV 500 MG/100ML* 500 MG/100 ML BAG IVPB SCH ×4 (01:50→17:34)
[2019-06-12 02:55] LABS: Troponin I 1.21 ng/mL (<0.04)
[2019-06-12 05:49] LABS: ABS Eosinophils 0.4 10^3/ul (0-0.6); ABS Lymphocytes 2.4 10^3/ul (1.0-4.8); ABS Monocytes 0.8 10^3/ul (0-0.8); Eosinophil % 3.4 %; Hematocrit 37 % (42-52); Hemoglobin 12.2 g/dL (14.0-18.0); Lymphocyte % 20.4 %; Mean Corpuscular HGB Conc 33 g/dL (31-36); Mean Corpuscular Hemoglobin 28 pg (27-31); Mean Corpuscular Volume 85 fL (80-94); Mean Platelet Volume 9.5 fL (7.4-10.4); Nucleated Red Blood Cells % 0.1; Platelet Count 284 10^3/uL (150-450); Red Blood Count 4.42 10^6 /uL (4.18-5.48); Red Cell Distribution Width 15 % (10-15); White Blood Count 11.6 10^3/uL (3.5-10.8)
[2019-06-12 06:13] LABS: Troponin I 1.13 ng/mL (<0.04)
[2019-06-12 06:27] LABS: BUN/Creatinine Ratio 12.7 (8-20); Potassium 3.4 mmol/L (3.5-5.0)
[2019-06-12 06:28] LABS: Calcium 8.5 mg/dL (8.6-10.3); EGFR African American 76.2 (>60)
[2019-06-12] MEDS ORDERED: Aspirin TAB* 325 MG PO SCH ×2 (07:00→09:00)
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
[2019-06-12] MEDS: Morphine INJ* 2 MG/ML 1 ML SYRINGE (TWO MG - NEW SYRINGE VERSION) IV PRN ×4 (08:09→21:38)
[2019-06-12] MEDS: Docusate CAP* 100 MG PO SCH ×2 (08:10→21:27)
[2019-06-12] MEDS: KCL 10 MEQ/50 ML IVPREMIX* 10 MEQ/50 ML BAG IV SCH ×3 (08:10→11:56)
[2019-06-12] MEDS: Insulin LISPRO* 1 UNITS UNIT SUBCUT SCH ×4 (08:26→21:27)
[2019-06-12] MEDS ORDERED: diPHENhydraMINE PO* 25 MG PO PRN (08:36)
[2019-06-12] MEDS ORDERED: NS 0.9% 1000 ML** 1,000 ML IV SCH (08:45)
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
[2019-06-12] MEDS ORDERED: Aspirin 81 mg CHEW TAB* 81 MG TAB.CHEW PO SCH (09:02)
[2019-06-12 09:04] LABS: INR 1.21 (0.82-1.09)
[2019-06-12] MEDS: LORazepam TAB(*) 0.5 MG PO PRN (09:26)
[2019-06-12] MEDS ORDERED: Lidocaine 1% INJ* 10 MG/ML 30 ML SDV ONE (09:55)
[2019-06-12] MEDS ORDERED: Iodixanol 320 (CONTRAST) 100 ML SDV ONE (09:55)
[2019-06-12] MEDS ORDERED: Heparin 2 UNITS/ML IVPREMIX* 3,000 ML IV ONE (09:55)
[2019-06-12] MEDS ORDERED: Midazolam* 1 MG/ML 5 ML VIAL (5 MG) ONE (10:14)
[2019-06-12] MEDS ORDERED: fentaNYL* 50 MCG/ML 2 ML VIAL (100 MCG VIAL) ONE (10:14)
[2019-06-12] MEDS ORDERED: VERAPAMIL 2.5 MG/ML 2 ML VIAL ** 5 mg/2 ml ONE (10:15)
[2019-06-12] MEDS ORDERED: nitroGLYCERIN DRIP* 25,000 MCG/250 ML BTL ONE (10:15)
[2019-06-12] MEDS ORDERED: Heparin(*) 1000 UNIT/ML 10 ML VIAL CATH LAB IV ONE (10:15)
[2019-06-12 10:37] LABS: Magnesium 1.5 mg/dL (1.9-2.7)
[2019-06-12] MEDS: Cefepime 1 GM in Dextrose(*) 1 GM/50 ML BAG IV SCH ×2 (11:56→22:35)
[2019-06-12 13:38] LABS: POC SO2 45 %
[2019-06-12 13:39] LABS: POC SO2 92 %
[2019-06-12 13:39] LABS: POC SO2 52 %
--- NOTE | 2019-06-12 16:54 | PN ---
Hospitalist Progress Note Date of Service: 06/12/19 HOSPITALIST ADDENDUM Case d/w Dr Craft - cardiac cath showed 3 VD. Plan is to continue medical management, treat pneumonia, add ACEI/diuretic as BP allows. When stable, d/c home with Life Vest and f/u with him 1-2 weeks after discharge to discuss referral to [facility] for CABG.
[2019-06-12] MEDS: Heparin VIAL(*) 5000 UNITS/ML VIAL (FIVE THOUSAND) SUBCUT SCH (21:29)
--- NOTE | 2019-06-12 22:15 | CATH ---
CARDIAC CATHETERIZATION REPORT: DATE OF PROCEDURE: 06/12/19 - ROOM #442 PROCEDURE: Cardiac catheterization including left heart catheterization, right heart catheterization, coronary angiography. INDICATION: Congestive heart failure, acute coronary syndrome. The patient is a 58-year-old gentleman, who was admitted to the hospital with respiratory distress and cough. He was noted to be significantly short of breath. He had been reporting increasing dyspnea for the past 3 weeks; however, the day before coming to the hospital, he had significant increase in his shortness of breath to the point where he could barley make it around his house without being profoundly dyspneic. He came to the emergency room. He was placed on BiPAP. He was given Lasix. The patient's echocardiogram yesterday showed severe LV dysfunction, ejection fraction of 20% to 25%, moderate mitral regurgitation, inferior wall akinesis with hypokinesis of the remaining domingo. Cardiac catheterization was recommended for evaluation of his cardiac status. DESCRIPTION OF PROCEDURE: The patient came to the procedure room in a fasting state. Informed consent had been obtained prior to the procedure. All labs were reviewed. The patient was placed supine on the procedure table. His right antecubital and right radial areas were prepped and draped in the usual fashion. 1% lidocaine was used for local anesthesia. The right antecubital IV was exchanged for right antecubital introducer, it is a 5-Micronesian introducer. The patient underwent right heart catheterization with multiple hemodynamic and oxygen saturation readings. The right radial artery was entered by a Seldinger technique and a 6-Micronesian sheath introducer was placed. An infusion of nitroglycerin and verapamil was given. The patient was already on IV heparin. The patient underwent coronary angiography using a 6-Micronesian TIG catheter and a 6 -Micronesian AR2 catheter. At the end of the procedure, all sheaths and catheters were removed. The patient tolerated the procedure well with no complications. A total of 70 cc of Visipaque dye was used. A total of 6.6 minutes of fluoro time was used. FINDINGS: 1. Hemodynamics: Right atrial pressure of 17 mmHg, right ventricular pressure 53/17 with an end diastolic pressure of 17. Pulmonary capillary wedge pressure of 35, pulmonary artery pressure of 57/33 with a mean of 44. Central aortic blood pressure 104/79 with a mean of 91. Left ventricular pressure 104/26 with an end diastolic pressure of 40. 2. Oxygen saturation: Right atrial saturation 45%, pulmonary artery saturation 52%, central aortic saturation 92%. Cardiac output by Roberto 3.7 L per minute. CORONARY ARTERIES: 1. Left main artery: The left main was normal in size. It bifurcated into the LAD and circumflex. There was heavy calcification of the left main artery. 2. Left anterior descending artery: The LAD with normal in size. It gave off 1 diagonal vessel. The proximal LAD had a long 50% stenosis with moderate calcification. The mid LAD had an eccentric 70% stenosis. After the 70% stenosis, the LAD reconstituted into a large vessel measuring at least 3.5 cm in size. The first diagonal vessel was normal in size. The proximal D1 vessel had a 50% stenosis. The D1 vessel did give off left to left collaterals to the occluded left circumflex artery. 3. Left circumflex artery: The left circumflex artery was normal in size. It gave off 1 small obtuse marginal branch. A couple of centimeters after that first bifurcation to OM1, the left circumflex was 100% occluded, again with known left to left collaterals from the D1 vessel. There was evidence of a large low lying obtuse marginal on the lateral wall that was fed by collaterals. 4. Right coronary artery: The RCA was a large dominant vessel giving off the PDA. The proximal right coronary artery had mild calcification. The remainder of the vessel was without disease. The distal right coronary artery just before the PDA had an 80% stenosis. The remainder of the PDA was without disease. The RV marginal branch was without disease. IMPRESSION: 1. Moderate pulmonary hypertension. 2. Elevated end diastolic pressure consistent with congestive heart failure. 3. Significant 3 vessel coronary artery disease. 4. Occluded left circumflex artery with left to left collaterals. 5. Long 60% stenosis of the mid LAD. 6. 80% stenosis of the distal right coronary artery before the PDA. RECOMMENDATION: The patient has severe LV dysfunction that appears to be out of proportion to the degree of coronary artery disease. The patient has very good collateral flow to the occluded left circumflex artery. His 70% stenosis to the LAD and 80% stenosis to the right coronary artery are smooth stenoses. For now, my recommendation is that the patient continue on maximum medical therapy. The patient will be treated with beta blockers, LUIS inhibitors, and Aldactone as tolerated by his blood pressure and kidney function. The patient will be started on aspirin a day and statin therapy. It is my recommendation that the patient recover from the pulmonary issues, be discharged from the hospital with a LifeVest and see me in followup in 1 to 2 weeks for reevaluation of LV function and consideration of coronary bypass surgery. This was discussed with Dr. Ulloa. [id number] #: [id number] PAULINA
[2019-06-13] MEDS: metroNIDAZOLE IV 500 MG/100ML* 500 MG/100 ML BAG IVPB SCH ×3 (01:03→17:09)
[2019-06-13] MEDS: LORazepam TAB(*) 0.5 MG PO PRN (01:08)
[2019-06-13] MEDS: Morphine INJ* 2 MG/ML 1 ML SYRINGE (TWO MG - NEW SYRINGE VERSION) IV PRN ×5 (02:07→21:45)
[2019-06-13] MEDS: Azithromycin 500 mg/250 ml NS 500 MG/250 ML BAG IVPB SCH (02:59)
[2019-06-13] MEDS: Heparin VIAL(*) 5000 UNITS/ML VIAL (FIVE THOUSAND) SUBCUT SCH ×3 (05:43→21:44)
[2019-06-13 07:26] LABS: Hematocrit 38 % (42-52); Hemoglobin 12.4 g/dL (14.0-18.0); Mean Corpuscular HGB Conc 32 g/dL (31-36); Mean Corpuscular Hemoglobin 28 pg (27-31); Mean Corpuscular Volume 87 fL (80-94); Red Blood Count 4.43 10^6 /uL (4.18-5.48); Red Cell Distribution Width 15 % (10-15); White Blood Count 13.9 10^3/uL (3.5-10.8)
[2019-06-13 07:42] LABS: CO2 Carbon Dioxide 21 mmol/L (22-32); Calcium 8.8 mg/dL (8.6-10.3); Chloride 103 mmol/L (101-111); Sodium 133 mmol/L (135-145)
[2019-06-13 07:47] LABS: Anion Gap 9 mmol/L (2-11)
[2019-06-13 07:48] LABS: BUN/Creatinine Ratio 13.6 (8-20); Blood Urea Nitrogen 15 mg/dL (6-24); Cholesterol 306 mg/dL; EGFR African American 82.6 (>60); EGFR Non-African American 68.3 (>60); Glucose 159 mg/dL (70-100); LDL Cholesterol 202 mg/dL; Triglycerides 330 mg/dL
[2019-06-13 08:30] LABS: ABS Basophils 0.2 10^3/ul (0-0.2); ABS Eosinophils 0.4 10^3/ul (0-0.6); ABS Lymphocytes 2.8 10^3/ul (1.0-4.8); ABS Monocytes 0.9 10^3/ul (0-0.8); ABS Neutrophils 9.6 10^3/ul (1.5-7.7); Eosinophil % 3.2 %; Lymphocyte % 20.4 %; Nucleated Red Blood Cells % 0.1; Platelet Count Platelets clumped. 10^3/uL (150-450)
--- NOTE | 2019-06-13 08:56 | PN ---
<NarenscottyAnlay - Last Filed: 06/13/19 08:50> Subjective Date of Service: 06/13/19 - NSTEMI Interval History: No events last night. Patient states he did not sleep well due to persistent cough. He is visibly aggravated stating he was upset with Dr. Craft and I that he was not updated after his LHC in regards to the results. I apologized on behalf of our team and informed him that unfortunately, I was not here after his cath and was sin the office. He denies chest pain, dizziness, sensation of heart racing. Medications Active Medications: Acetaminophen (Tylenol Tab*) 650 mg PO Q4H PRN PRN Reason: PAIN-MILD/TEMP >/= 100.4 Al Hydrox/Mg Hydrox/Simethicone (Maalox Plus*) 30 ml PO Q6H PRN PRN Reason: INDIGESTION Aspirin (Aspirin 81 Mg Chew Tab*) 81 mg PO DAILY [facility] Atorvastatin Calcium (Lipitor*) 80 mg PO 2100 [facility] Dextrose (Dextrose 50% Vial 50 Ml*) 25 ml IV PUSH .FOR FS < 60 - SS PRN PRN Reason: FS < 60 Docusate Sodium (Colace Cap*) 100 mg PO BID [facility] Last Admin: 06/12/19 21:27 Dose: Not Given Heparin Sodium (Porcine) (Heparin Vial(*)) 5,000 units SUBCUT Q8HR [facility] Last Admin: 06/13/19 05:43 Dose: 5,000 units Azithromycin (Zithromax 500 Mg/250 Ml) 500 mg in 250 mls @ 250 mls/hr IVPB Q24H [facility] Last Admin: 06/13/19 02:59 Dose: 250 mls/hr Metronidazole/Sodium Chloride (Flagyl 500 Mg Ivpb*) 500 mg in 100 mls @ 100 mls /hr IVPB Q8H [facility] Last Admin: 06/13/19 01:03 Dose: 100 mls/hr Cefepime HCl (Maxipime 1 Gm In Dextrose Duplex (*)) 1 gm in 50 mls @ 100 mls/ hr IV Q12H [facility] Last Admin: 06/12/19 22:35 Dose: 100 mls/hr Insulin Human Lispro (Humalog*) 0 units SUBCUT ACHS [facility]; Protocol Last Admin: 06/12/19 21:27 Dose: Not Given Lorazepam (Ativan Tab(*)) 0.5 mg PO Q4H PRN PRN Reason: ANXIETY Last Admin: 06/13/19 01:08 Dose: 0.5 mg Metoprolol Succinate (Toprol Xl Tab*) 12.5 mg PO DAILY CARLOS Morphine Sulfate (Morphine Inj (Syringe))*) 2 mg IV Q4H PRN PRN Reason: Pain -severe Last Admin: 06/13/19 06:42 Dose: 2 mg Tramadol HCl (Ultram*) 50 mg PO Q8H PRN PRN Reason: Pain-severe Last Admin: 06/11/19 20:48 Dose: 50 mg Objective Vital Signs: Temp Pulse Resp BP Pulse Ox 97.3 F 94 20 114/79 96 06/13/19 07:15 06/13/19 07:15 06/13/19 07:15 06/13/19 07:15 06/13/19 07:15 Oxygen Devices in Use Now: Nasal Cannula Appearance: sitting on edge of bed, NAD, A+O x3 Ears/Nose/Mouth/Throat: NL Teeth, Lips, Gums, Clear Oropharnyx, Mucous Membranes Moist Neck: NL Appearance and Movements; NL JVP, Trachea Midline Respiratory: Symmetrical Chest Expansion and Respiratory Effort, - - Slight inspiratory crackles noted in right base. Cardiovascular: - - Diminished S1, S2, faint 2/5 diastolic mitral murmur, no gallop or rub. Extremities: No Edema, - - right radial access site inspected, no hematoma, no thrill. + strong radial pulse palpated. Skin: No Rash or Ulcers Neurological: Alert and Oriented x 3 Lines/Tubes/Other Access: Clean, Dry and Intact Peripheral IV Laboratory Results: 06/13/19 06:17 06/13/19 06:17 INR (Anticoag Therapy) 1.21 (0.82-1.09) H 06/12/19 08:40 APTT 61.3 seconds (26.0-38.0) H 06/12/19 05:30 Total Bilirubin 0.70 mg/dL (0.2-1.0) 06/11/19 00:51 AST 30 U/L (13-39) 06/11/19 00:51 ALT 23 U/L (7-52) 06/11/19 00:51 Alkaline Phosphatase 60 U/L (34-104) 06/11/19 00:51 B-Natriuretic Peptide 821 pg/mL (<=100) H 06/11/19 00:51 Total Protein 6.6 g/dL (6.4-8.9) 06/11/19 00:51 Albumin 3.8 g/dL (3.2-5.2) 06/11/19 00:51 Globulin 2.8 g/dL (2-4) 06/11/19 00:51 Albumin/Globulin Ratio 1.4 (1-3) 06/11/19 00:51 Triglycerides 330 mg/dL 06/13/19 06:17 Cholesterol 306 mg/dL 06/13/19 06:17 LDL Cholesterol 202 mg/dL 06/13/19 06:17 HDL Cholesterol 38.0 mg/dL 06/13/19 06:17 06/11/19 06/11/19 06/11/19 00:51 03:07 09:38 Troponin I 1.51 H* 1.52 H* 1.58 H* 06/11/19 06/11/19 06/11/19 17:14 20:28 22:58 Troponin I 1.20 H* 1.07 H* 1.15 H* 06/12/19 06/12/19 02:27 05:30 Troponin I 1.21 H* 1.13 H* Diagnostic Imaging: *[facility]* [place] [address] Fax #: [phone] Transthoracic Echocardiogram Patient: Naga Vega : 1960 Study Date: 06/11/2019 Age: 58 Gender: M HR: 91 bpm Height: 70 in /177.8 cm BSA: 1.98 m^2 Weight: 176.6 lb /80.3 kg BMI: 25.4 kg/m^2 *Die Tripper: Geni Swift [facility] *Referring Physician: * Natalie Castle *Reading Physician: * Rob Craft MD Indications: SOB. History: Risk factors: Diabetes mellitus. Dyslipidemia. Conclusions Summary: - Left ventricle: Systolic function is moderately to severely reduced. The estimated ejection fraction is 25-30%. Moderate to severe diffuse hypokinesiswith regional wall motion abnormalities. Inferior Akinesis. - Right ventricle: Systolic function is normal. - Mitral valve: There is moderate to severe regurgitation. - Aortic valve: There is no evidence of stenosis. There is trace regurgitation. - Tricuspid valve: There is trace regurgitation. - Pericardium, extracardiac: There is no significant pericardial effusion. - Pulmonary arteries: Systolic pressure is within the normal range. - Study data: No prior study is available for comparison. Study data: Transthoracic echocardiogram. Procedure: Transthoracic echocardiography was performed. Image quality was This report is only to be considered final once signed by the Provider(s) as displayed in the "<Electronically Signed by >" field (s). Absence of a signature indicates the report is in a draft status and still needs to be finalized. In the event this document was created by someone other than the signing Provider, the individual initiating the document will be listed in the "Entered by:" or "Dictated by:" anderson. Cardiac Catheterization Report Patient: NAGA VEGA /Age: 01 1960 58 Medical Record#: [id number] Admission Date: 06/11/19 Provider: Rob Craft MD CARDIAC CATHETERIZATION REPORT: DATE OF PROCEDURE: 06/12/19 - ROOM #442 PROCEDURE: Cardiac catheterization including left heart catheterization, right heart catheterization, coronary angiography. INDICATION: Congestive heart failure, acute coronary syndrome. The patient is a 58-year-old gentleman, who was admitted to the hospital with respiratory distress and cough. He was noted to be significantly short of breath. He had been reporting increasing dyspnea for the past 3 weeks; however, the day before coming to the hospital, he had significant increase in his shortness of breath to the point where he could barley make it around his house without being profoundly dyspneic. He came to the emergency room. He was placed on BiPAP. He was given Lasix. The patient's echocardiogram yesterday showed severe LV dysfunction, ejection fraction of 20% to 25%, moderate mitral regurgitation, inferior wall akinesis with hypokinesis of the remaining domingo. Cardiac catheterization was recommended for evaluation of his cardiac status. DESCRIPTION OF PROCEDURE: The patient came to the procedure room in a fasting state. Informed consent had been obtained prior to the procedure. All labs were reviewed. The patient was placed supine on the procedure table. His right antecubital and right radial areas were prepped and draped in the usual fashion. 1% lidocaine was used for local anesthesia. The right antecubital IV was exchanged for right antecubital introducer, it is a 5-Greek introducer. The patient underwent right heart catheterization with multiple hemodynamic and oxygen saturation readings. The right radial artery was entered by a Seldinger technique and a 6- Greek sheath introducer was placed. An infusion of nitroglycerin and verapamil was given. The patient was already on IV heparin. The patient underwent coronary angiography using a 6-Greek TIG catheter and a 6 -Greek AR2 catheter. At the end of the procedure, all sheaths and catheters were removed. The patient tolerated the procedure well with no complications. A total of 70 cc of Visipaque dye was used. A total of 6.6 minutes of fluoro time was used. FINDINGS: 1. Hemodynamics: Right atrial pressure of 17 mmHg, right ventricular pressure 53/17 with an end diastolic pressure of 17. Pulmonary capillary wedge pressure of 35, pulmonary artery pressure of 57/33 with a mean of 44. Central aortic blood pressure 104/79 with a mean of 91. Left ventricular pressure 104/ 26 with an end diastolic pressure of 40. 2. Oxygen saturation: Right atrial saturation 45%, pulmonary artery saturation 52%, central aortic saturation 92%. Cardiac output by Roberto 3.7 L per minute. CORONARY ARTERIES: 1. Left main artery: The left main was normal in size. It bifurcated into the LAD and circumflex. There was heavy calcification of the left main artery. This report is only to be considered final once signed by the Provider(s) as displayed in the "<Electronically Signed by >" field (s). Absence of a signature indicates the report is in a draft status and still needs to be finalized. In the event this document was created by someone other than the signing Provider, the individual initiating the document will be listed in the "Entered by:" or "Dictated by:" anderson. 1 of 3 EKG Data: 06/11/2019 ECG reviewed; Sinus rhythm rate 90 with frequent PVCs early repolarization noted in anterior leads. Telemetry reviewed; Sinus rate 80-90's with occasional ventricular couplets and PVCs. no VT. Assessment/Plan #1 NSTEMI; Troponin peaked upon presentation at 1.5, + focal wall motion abnormality on echo with severe LV dysfunction and moderate to severe MR. HE states he had intermittent c/o chest tightness all day yesterday until he presented to the emergency room. No reoccurrence since. Trop trending down. CTA chest per report demonstrated severe coronary calcification. He admits to isolated cocaine use last week but adds that was the first time he has done it in years. He under went [facility] with Dr. Craft 06/12/2019 which revealed TVD. Plan is referral to [facility]TS outpatient. He is on ASA 81/day. will start Lipitor 80QHS given LDL is 202 on Lipitor 40mg/day which was home dose. Will speak with attending about adding Toprol. Im hesitant given recent cocaine use although he states it was an isolated occurrence. Will speak with Dr. Frausto about adding Plavix 75mg/day given NSTEMI however, given he is to see CTS for possible CABG with MVR I'm not sure that CTS would want him on Plavix prior. #2 Moderate to severe MR; possibly due to above #1. Will give 20mg IV Lasix x1 then start Lasix 20mg/day. will add Lisinopril 2.5mg/day #3 h/o DM; Given newly diagnosed SHF patient would benefit from SLGT2 recommend f/u with PCP to explore this option. Metformin will need to be held for 48 hours post LHC. #4 SHF; Appears to be ischemic in nature. Has TVD. Continue IV diuresis. Not on bblocker due to + cocaine use with urine drug screen.Will add Lisinopril 2.5mg/day. Lifevest order placed. #5 disposition pending course. Will speak with attending about adding Bblocker in the setting of recent cocaine use in addition to clarifying if he should be on DAPT therapy. Will follow closely. Attending: Lisbeth Frausto <Lisbeth Frausto - Last Filed: 06/13/19 10:31> Medications Active Medications: Acetaminophen (Tylenol Tab*) 650 mg PO Q4H PRN PRN Reason: PAIN-MILD/TEMP >/= 100.4 Al Hydrox/Mg Hydrox/Simethicone (Maalox Plus*) 30 ml PO Q6H PRN PRN Reason: INDIGESTION Aspirin (Aspirin 81 Mg Chew Tab*) 81 mg PO DAILY [facility] Last Admin: 06/13/19 09:02 Dose: 81 mg Atorvastatin Calcium (Lipitor*) 80 mg PO 2100 [facility] Dextrose (Dextrose 50% Vial 50 Ml*) 25 ml IV PUSH .FOR FS < 60 - SS PRN PRN Reason: FS < 60 Docusate Sodium (Colace Cap*) 100 mg PO BID [facility] Last Admin: 06/13/19 09:02 Dose: 100 mg Ezetimibe (Zetia Tab*) 10 mg PO 1700 [facility] Heparin Sodium (Porcine) (Heparin Vial(*)) 5,000 units SUBCUT Q8HR [facility] Last Admin: 06/13/19 05:43 Dose: 5,000 units Azithromycin (Zithromax 500 Mg/250 Ml) 500 mg in 250 mls @ 250 mls/hr IVPB Q24H [facility] Last Admin: 10/02/19 02:59 Dose: 250 mls/hr Metronidazole/Sodium Chloride (Flagyl 500 Mg Ivpb*) 500 mg in 100 mls @ 100 mls /hr IVPB Q8H [facility] Last Admin: 06/13/19 09:05 Dose: 100 mls/hr Cefepime HCl (Maxipime 1 Gm In Dextrose Duplex (*)) 1 gm in 50 mls @ 100 mls/ hr IV Q12H [facility] Last Admin: 06/12/19 22:35 Dose: 100 mls/hr Insulin Human Lispro (Humalog*) 0 units SUBCUT ACHS [facility]; Protocol Last Admin: 06/13/19 09:01 Dose: 1 unit Lisinopril (Prinivil Tab*) 2.5 mg PO DAILY [facility] Lorazepam (Ativan Tab(*)) 0.5 mg PO Q4H PRN PRN Reason: ANXIETY Last Admin: 06/13/19 01:08 Dose: 0.5 mg Morphine Sulfate (Morphine Inj (Syringe))*) 2 mg IV Q4H PRN PRN Reason: Pain -severe Last Admin: 06/13/19 06:42 Dose: 2 mg Tramadol HCl (Ultram*) 50 mg PO Q8H PRN PRN Reason: Pain-severe Last Admin: 06/11/19 20:48 Dose: 50 mg Objective Vital Signs: Temp Pulse Resp BP Pulse Ox 97.3 F 94 20 114/79 96 06/13/19 07:15 06/13/19 07:15 06/13/19 07:15 06/13/19 07:15 06/13/19 07:15 Laboratory Results: 06/13/19 06:17 06/13/19 06:17 INR (Anticoag Therapy) 1.21 (0.82-1.09) H 06/12/19 08:40 APTT 61.3 seconds (26.0-38.0) H 06/12/19 05:30 Total Bilirubin 0.70 mg/dL (0.2-1.0) 06/11/19 00:51 AST 30 U/L (13-39) 06/11/19 00:51 ALT 23 U/L (7-52) 06/11/19 00:51 Alkaline Phosphatase 60 U/L (34-104) 06/11/19 00:51 B-Natriuretic Peptide 821 pg/mL (<=100) H 06/11/19 00:51 Total Protein 6.6 g/dL (6.4-8.9) 06/11/19 00:51 Albumin 3.8 g/dL (3.2-5.2) 06/11/19 00:51 Globulin 2.8 g/dL (2-4) 06/11/19 00:51 Albumin/Globulin Ratio 1.4 (1-3) 06/11/19 00:51 Triglycerides 330 mg/dL 06/13/19 06:17 Cholesterol 306 mg/dL 06/13/19 06:17 LDL Cholesterol 202 mg/dL 06/13/19 06:17 HDL Cholesterol 38.0 mg/dL 06/13/19 06:17 06/11/19 06/11/19 06/11/19 00:51 03:07 09:38 Troponin I 1.51 H* 1.52 H* 1.58 H* 06/11/19 06/11/19 06/11/19 17:14 20:28 22:58 Troponin I 1.20 H* 1.07 H* 1.15 H* 06/12/19 06/12/19 02:27 05:30 Troponin I 1.21 H* 1.13 H* Assessment/Plan I saw the patient personally. The above plan reviewed. I agree Pleuritic CP, orthopnea, coughing and SOB persist. Exam: BS clear S1S2 regular, no murmur heard. No HSM R wrist cath site unremarkable. As above, NSTEMI, 3V mi'kmaq CAD, extensive, CM, possibly ischemic, possibly ischemia + MR, and consideration of viral CM as well. Severe familial mixed dyslipidemia CP sounds non cardiac, hx c/w pulmonic process. Consider updated CXR to look for CHF/effusions Consider ESR/CRP, follow (wbc remains elevated on ABX) Agree with ACEI, low dose Toprol, diuretics. Advance as BP tolerates. I added Zetia to maximum dose lipator, diet education for TG's and outpatient Vascepa addition recommended. Doesn't look well today. May need transfer for CABG, if goes to [facility] CHF team can evaluate CM, MR in addition to Sx perioperatively. I don't recommend DOAC now as could/will delay surgery.
[2019-06-13] MEDS: Insulin LISPRO* 1 UNITS UNIT SUBCUT SCH ×5 (08:57→21:44)
[2019-06-13] MEDS ORDERED: Lisinopril TAB* 5 MG PO SCH (09:00)
[2019-06-13] MEDS ORDERED: Metoprolol Succinate XL TAB* 25 MG PO SCH ×2 (09:00→21:00)
[2019-06-13] MEDS: Docusate CAP* 100 MG PO SCH ×2 (09:02→21:44)
[2019-06-13] MEDS: Cefepime 1 GM in Dextrose(*) 1 GM/50 ML BAG IV SCH ×2 (11:19→21:46)
[2019-06-13] MEDS ORDERED: Potassium Chlor TAB* 20 MEQ TAB.ER PO ONE (12:26)
[2019-06-13] MEDS ORDERED: Furosemide IV* 10 MG/ML 2 ML VIAL (20 MG) IV ONE (12:27)
[2019-06-13] MEDS ORDERED: Ezetimibe TAB* 10 MG PO SCH (17:00)
[2019-06-13] MEDS ORDERED: methylPREDNISolone SOD 40 MG* 1 ML VIAL IV SCH (18:00)
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
[2019-06-13] MEDS ORDERED: Atorvastatin* 80 MG TAB PO SCH (21:00)
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
[2019-06-14] MEDS: metroNIDAZOLE IV 500 MG/100ML* 500 MG/100 ML BAG IVPB SCH (00:24)
[2019-06-14] MEDS: Azithromycin 500 mg/250 ml NS 500 MG/250 ML BAG IVPB SCH (02:18)
[2019-06-14 04:29] VITALS: BP 88/50
[2019-06-14] MEDS ORDERED: Furosemide TAB* 20 MG PO SCH (09:00)
--- NOTE | 2019-06-14 09:14 | DS ---
CC: Dr. Niya Kenyon * DISCHARGE SUMMARY: DATE OF ADMISSION: 06/11/19 DATE OF LEAVING AMA: 06/14/19 ADMISSION DIAGNOSES: Acute respiratory failure with elevated troponin, possible non-ST elevation myocardial infarction. DISCHARGE DIAGNOSES: 1. Acute hypoxic respiratory failure due to pneumonia, congestive heart failure , and [id number]-hqilfluml myocardial infarction. 2. Tdx-JM-hinvouyjq myocardial infarction with echo suggesting of akinetic anteroinferior wall with cardiac cath demonstrating 3-vessel disease. 3. Pneumonia. 4. Systolic congestive heart failure. 5. Type 2 diabetes. HOSPITAL COURSE: This is a 58-year-old gentleman who came in due to hypoxic respiratory failure, was noted to have elevated troponin. He was started on broad spectrum antibiotics along with some diuretic therapy, and Cardiology was also consulted who did an echocardiogram which showed akinetic valve. He underwent a cardiac catheterization which demonstrated 3-vessel disease and the patient needs coronary artery bypass graft. In the meantime, his EF was also noted to be severely low at 25% to 30%, and he would benefit from LifeVest along with starting the patient on Lasix. However, on 06/14/19 at 5 o'clock in the morning, I was called that his blood pressure was low and he was again complaining of chest pain. I suggested repeating EKG and getting a set of troponin on him; however, he refused the lab and he wanted something stronger for pain, but given his low blood pressure, no further morphine could be given. I recommended some Tylenol, but he got mad. I have physically went to see the patient to discuss with him to help him stay longer, but he refused to sign any AMA papers, but he understood that his leaving would mean that he could with a sudden cardiac especially without his LifeVest and could also from his coronary disease because he has a 3-vessel disease which needs further treatment with coronary artery bypass graft. The patient was otherwise alert and oriented, understood what he was talking about but was just agitated. CONDITION ON SIGNING OUT AMA: Alert and oriented and completely stable, able to walk without any assistive device and was saturating well. [id number] #: [id number] MTDD
== END 2019-06-14 05:16 | disposition left against medical advice (07) | DRG 190 ==
LOC: ED 22:11 → ICU 06-11 03:41 → MEDTELE 06-12 18:46
PROVIDERS: ADMIT Internal Medicine; ATTEND Internal Medicine
PROC: 4A023N8 Measurement of Cardiac Sampling and Pressure, Bilateral, Percutaneous Approach (ICD-10-PCS; 2019-06-12)
PROC: B211YZZ Fluoroscopy of Multiple Coronary Arteries using Other Contrast (ICD-10-PCS; principal; 2019-06-12 10:00)
DX: I21.4 Non-ST elevation (NSTEMI) myocardial infarction (principal); J96.01 Acute respiratory failure with hypoxia; J18.9 Pneumonia, unspecified organism; I50.21 Acute systolic (congestive) heart failure; I42.9 Cardiomyopathy, unspecified; I11.0 Hypertensive heart disease with heart failure; E11.9 Type 2 diabetes mellitus without complications; F41.9 Anxiety disorder, unspecified; F32.9 Major depressive disorder, single episode, unspecified; Z96.642 Presence of left artificial hip joint; E78.00 Pure hypercholesterolemia, unspecified; M19.042 Primary osteoarthritis, left hand; M19.041 Primary osteoarthritis, right hand; F19.10 Other psychoactive substance abuse, uncomplicated; I34.0 Nonrheumatic mitral (valve) insufficiency; I25.10 Atherosclerotic heart disease of native coronary artery without angina pectoris; E78.2 Mixed hyperlipidemia; Z53.29 Procedure and treatment not carried out because of patient's decision for other reasons; E66.9 Obesity, unspecified; I27.20 Pulmonary hypertension, unspecified; Z81.1 Family history of alcohol abuse and dependence; Z88.0 Allergy status to penicillin; Z87.442 Personal history of urinary calculi; Z86.14 Personal history of Methicillin resistant Staphylococcus aureus infection; Z68.26 Body mass index [BMI] 26.0-26.9, adult
CPT/HCPCS: 36415; 70486; 71046; 71275; 80048; 80053; 80061; 80307; 82803; 83036; 83605; 83735; 83880; 84484; 85025; 85379; 85610; 85730; 86140; 87641; 87899; 90686; 93005; 93306; 93460; 99156; 99157; 99285; A9270-GY; C1887; J0456; J0692; J1644; J1940; J2060; J2250; J2270; J2543; J2920; J3010; J3480; Q9967

== ENCOUNTER 2020-04-02 15:16 | Inpatient (IN) ==
[2020-04-02 15:57] LABS: Urine Appearance Clear; Urine Bilirubin Negative (Negative); Urine Blood Negative (Negative); Urine Color Yellow; Urine Glucose 3+(>=500 mg/dL) (Negative); Urine Ketones Negative (Negative); Urine Nitrite Negative (Negative); Urine Protein Negative (Negative); Urine Specific Gravity 1.031 (1.010-1.030); Urine Urobilinogen Negative (Negative)
[2020-04-02 16:09] LABS: ABS Basophils 0.1 10^3/ul (0-0.2); ABS Eosinophils 0.2 10^3/ul (0-0.6); ABS Lymphocytes 2.1 10^3/ul (1.0-4.8); ABS Monocytes 0.4 10^3/ul (0-0.8); Eosinophil % 3.2 %; Hematocrit 39 % (42-52); Mean Corpuscular HGB Conc 33 g/dL (31-36); Mean Corpuscular Hemoglobin 28 pg (27-31); Mean Corpuscular Volume 85 fL (80-94); Mean Platelet Volume 9.1 fL (7.4-10.4); Platelet Count 261 10^3/uL (150-450); Red Blood Count 4.58 10^6 /uL (4.18-5.48); Red Cell Distribution Width 16 % (10-15); White Blood Count 7.7 10^3/uL (3.5-10.8)
[2020-04-02 16:27] LABS: ALT 21 U/L (7-52); AST 22 U/L (13-39); Albumin 4.2 g/dL (3.2-5.2); Albumin/Globulin Ratio 1.4 (1-3); Alkaline Phosphatase 49 U/L (34-104); Anion Gap 10 mmol/L (2-11); BUN/Creatinine Ratio 20.5 (8-20); Blood Urea Nitrogen 24 mg/dL (6-24); CO2 Carbon Dioxide 21 mmol/L (22-32); Calcium 9.3 mg/dL (8.6-10.3); Chloride 101 mmol/L (101-111); EGFR African American 76.7 (>60); EGFR Non-African American 63.4 (>60); Globulin 2.9 g/dL (2-4); Glucose 424 mg/dL (70-100); Potassium 4.1 mmol/L (3.5-5.0); Sodium 132 mmol/L (135-145); Total Protein 7.1 g/dL (6.4-8.9)
[2020-04-02 16:29] LABS: Urine Benzodiazepine Screen None Detected (None Detect); Urine Opiates Screen None Detected (None Detect)
[2020-04-02 16:44] LABS: Acetaminophen < 15 mcg/mL; Alcohol, S < 10 mg/dL (<10); Salicylate < 2.50 mg/dL (<30)
[2020-04-02] MEDS ORDERED: Al Hydrox/Mg Hydrox/Simet LIQ 30 ML UDC PO PRN (16:48)
[2020-04-02] MEDS ORDERED: Fluticasone NASAL SPRAY 50MCG 16 gm SPRAY BTL INTRANASAL PRN ×2 (16:49→20:06)
[2020-04-02 16:59] LABS: TSH (Thyroid Stimulating Horm) 0.89 mcIU/mL (0.34-5.60)
[2020-04-02] MEDS ORDERED: Dextrose 50% Syringe 50 ml 25 GM/50 ML SYRINGE IV PUSH PRN (20:36)
[2020-04-03] MEDS ORDERED: Empagliflozin (NF) 25 MG TABLET PO SCH (09:00)
[2020-04-03] MEDS: Aspirin EC 81 mg TAB.EC (enteric coated) PO SCH (10:15)
[2020-04-03] MEDS: Insulin GLARGINE 100 un/ml 10 ml VIAL SUBCUT SCH (10:36)
[2020-04-03] MEDS: Empagliflozin (NF) 25 MG TABLET PO SCH (10:41)
[2020-04-04 08:04] VITALS: BP 117/64
[2020-04-04] MEDS: Insulin GLARGINE 100 un/ml 10 ml VIAL SUBCUT SCH (10:11)
[2020-04-04] MEDS: Aspirin EC 81 mg TAB.EC (enteric coated) PO SCH (10:11)
[2020-04-04] MEDS: Empagliflozin (NF) 25 MG TABLET PO SCH (10:15)
== END 2020-04-04 11:00 | disposition home or self-care (01) | DRG 754 ==
LOC: ED 15:16 → BSU 16:48 → ED 19:29
PROVIDERS: ADMIT Psychiatry & Neurology Psychiatry; ATTEND Psychiatry & Neurology Psychiatry